=== PATIENT | female | born 1990 | race Caucasian/White ===

== ENCOUNTER 2017-09-14 17:57 | Inpatient (IN) | payer MEDICAID ==
[~2017-09-14] VITALS: Ht 167.6 cm; Wt 84.9 kg
[2017-09-14 18:50] VITALS: Ht 167.6 cm; Wt 84.9 kg
[2017-09-14 22:42] LABS: BASOPHIL % 0.4 % (0-2)
[2017-09-14 22:45] LABS: PLATELET COUNT 177 x10^3mcL (130-400); RED CELL DISTRIBUTION WIDTH 14.1 % (11.5-14.5)
[2017-09-15 00:57] LABS: MAGNESIUM 1.8 mg/dL (1.8-2.4); PHOSPHOROUS 3.3 mg/dL (2.5-4.9)
[2017-09-15 00:58] LABS: CHOLESTEROL/HDL RATIO 2.7
[2017-09-15 01:02] LABS: T3 TOTAL 1.46 ng/mL
[2017-09-15 01:08] LABS: FREE T4 1.16 ng/dL (0.76-1.46); T4(THYROXINE) 9.8 ug/dL (4.7-13.3)
[2017-09-15] MEDS ORDERED: CLEOCIN HCL300 MG PO (02:09)
[2017-09-15] MEDS ORDERED: MOT800 PO (02:09)
[2017-09-15 02:46] VITALS: BP 107/63
[2017-09-15 04:35] LABS: CALCIUM 8.4 mg/dL (8.5-10.1); CHLORIDE SERUM 105 mmol/L (98-107); CREATININE SERUM 0.8 mg/dL (0.6-1.0); GFR1 > 60 mL/min; GLUCOSE SERUM 91 mg/dL (74-106); POTASSIUM SERUM 3.9 mmol/L (3.5-5.1); SODIUM SERUM 138 mmol/L (136-145)
[2017-09-15 05:57] VITALS: BP 95/63
[2017-09-15 06:38] LABS: BASOPHIL % 0.4 % (0-2); PLATELET COUNT 160 x10^3mcL (130-400); RED CELL DISTRIBUTION WIDTH 14.3 % (11.5-14.5)
[2017-09-15 07:40] LABS: CALCIUM 8.2 mg/dL (8.5-10.1); CARBON DIOXIDE 28.5 mmol/L (21-32); CHLORIDE SERUM 107 mmol/L (98-107); CREATININE SERUM 0.9 mg/dL (0.6-1.0); GFR1 > 60 mL/min; GLUCOSE SERUM 91 mg/dL (74-106); POTASSIUM SERUM 4.1 mmol/L (3.5-5.1); SODIUM SERUM 139 mmol/L (136-145)
[2017-09-15 09:23] VITALS: BP 109/63
[2017-09-15 09:25] LABS: UA SPECIFIC GRAVITY >=1.030 (1.005-1.035); microscopic required? YES; urine erythrocyte 1+ (NEGATIVE)
[2017-09-15 09:41] LABS: AMPHETAMINE QUAL UR NONE DETECTED (NEG <=1000)
[2017-09-15 17:17] VITALS: BP 95/56
[2017-09-15 21:21] VITALS: BP 101/62
[2017-09-16 05:12] VITALS: BP 116/83
[2017-09-16 06:16] LABS: PLATELET COUNT 182 x10^3mcL (130-400); RED CELL DISTRIBUTION WIDTH 14.4 % (11.5-14.5)
[2017-09-16 06:45] LABS: CALCIUM 8.1 mg/dL (8.5-10.1); CARBON DIOXIDE 28.4 mmol/L (21-32); CHLORIDE SERUM 107 mmol/L (98-107); CREATININE SERUM 0.9 mg/dL (0.6-1.0); GFR1 > 60 mL/min; GLUCOSE SERUM 108 mg/dL (74-106); MAGNESIUM 1.9 mg/dL (1.8-2.4); PHOSPHOROUS 3.4 mg/dL (2.5-4.9); POTASSIUM SERUM 4.1 mmol/L (3.5-5.1); SODIUM SERUM 142 mmol/L (136-145)
[2017-09-16 07:41] LABS: BILIRUBIN DIRECT 0.17 mg/dL (0.0-0.2); BILIRUBIN TOTAL 0.43 mg/dL (0.20-1.00)
[2017-09-16 07:43] LABS: ALBUMIN 2.9 g/dL (3.4-5.0)
[2017-09-16 09:08] VITALS: BP 95/64
[2017-09-16 10:05] VITALS: BP 95/64
[2017-09-16 11:09] LABS: BAND NEUTROPHIL 3 % (0-10); BASOPHIL 0 % (0-2); MONOCYTE 6 % (0-7); PLATELET MORPHOLOGY PLATELETS NORMAL; SEGMENTED NEUTROPHILS 20 % (37-75)
== END 2017-09-16 11:18 | disposition home or self-care (01) | DRG 544 ==
LOC: ED 17:57 → DU 09-15 00:18
PROVIDERS: Emergency Medicine; Family Medicine; Family Medicine Sports Medicine; Obstetrics & Gynecology
PROC: 10D17ZZ Extraction of Products of Conception, Retained, Via Natural or Artificial Opening (ICD-10-PCS; principal; 2017-09-15 11:45)
DX: O03.4 Incomplete spontaneous abortion without complication (principal); E44.1 Mild protein-calorie malnutrition; O03.38 Urinary tract infection following incomplete spontaneous abortion; E66.9 Obesity, unspecified; Z68.30 Body mass index [BMI] 30.0-30.9, adult
CPT/HCPCS: 82962; 83880; 84439; 94150; J0295; J0696; J2250; J2405; J2704; J3010; J3490; J7030; J7120; Q0092